=== PATIENT | female | born 1990 ===

== ENCOUNTER 2018-07-08 11:27 | Emergency (ER) | payer MEDICAID ==
--- NOTE | 2018-07-08 12:11 | EDM.PDOC ---
ED HPI GENERAL MEDICAL PROBLEM - General Chief Complaint: Lower Extremity Injury/Pain Stated Complaint: LEG PAIN Time Seen by Provider: 07/08/18 11:31 Source of Information: Reports: Patient History Limitations: Reports: No Limitations - History of Present Illness INITIAL COMMENTS - FREE TEXT/NARRATIVE: Presents reporting tenderness over the left lateral knee. The patient shows me large and extensive varicose veins. Over the left lateral knee the varicosity is tender. She first noticed about 5 days ago. No fever, calf pain. 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: Reports: Psychiatric History: Reports: Depression - Past Surgical History GI Surgical History: Reports: Cholecystectomy Female Surgical History: Reports: Section Musculoskeletal Surgical History: Reports: Carpal Tunnel, Other (See Below) Other Musculoskeletal Surgeries/Procedures:: Right Hip Dislocation Social & Family History - Family History Family Medical History: Noncontributory - Tobacco Use Smoking Status *Q: Current Every Day Smoker Years of Tobacco use: 5 Packs/Tins Daily: 0.1 - Recreational Drug Use Recreational Drug Use: No Review of Systems - Review of Systems Review Of Systems: ROS reveals no pertinent complaints other than HPI. ED EXAM, GENERAL - Physical Exam Exam: See Below Exam Limited By: No Limitations General Appearance: Alert, No Apparent Distress Ears: Normal External Exam Nose: Normal Inspection Throat/Mouth: Normal Inspection Head: Atraumatic, Normocephalic Neck: Normal Inspection Respiratory/Chest: No Respiratory Distress, Lungs Clear, Normal Breath Sounds Cardiovascular: Normal Peripheral Pulses, Regular Rate, Rhythm, No Murmur Back Exam: Normal Inspection Extremities: Other (Left lateral knee varicosity tender to even light touch, warm slightly pink. Negative Homans sign pedal posttibial pulses strong no peripheral edema. No calf warmth, swelling, redness, calf is soft.). No: Pedal Edema Neurological: Alert, Oriented Psychiatric: Normal Affect, Normal Mood Skin Exam: Warm, Dry, Intact, Normal Color, No Rash Lymphatic: No Adenopathy Course - Vital Signs Last Recorded V/S: Last Vital Signs Temp 36.4 C 07/08/18 11:36 Pulse 104 H 07/08/18 11:36 Resp 16 07/08/18 11:36 BP 143/95 H 07/08/18 11:36 Pulse Ox 95 07/08/18 11:36 Departure - Departure Time of Disposition: 12:19 Disposition: Home, Self-Care 01 Condition: Good Clinical Impression: Thrombophlebitis - Discharge Information Referrals: PCP,Unknown [Primary Care Provider] - Forms: ED Department Discharge Additional Instructions: 1. You have been measured for supports stockings. Please order a thigh-high support stocking for your left leg and knee high stockings for both legs. 2. Elevate the left leg is much as possible. 3. Aleve 2 tabs in the morning and 2 at night or ibuprofen 2-3 tabs 3 times a day 4. You must get a referral from your primary care provider for definitive treatment of your extensive varicose veins. 5. Continue with your weight loss efforts as you have been doing. Good job!
[2018-07-08] MEDS ORDERED: Ketorolac 60 MG/2 ML SDV IM ONE (12:19)
== END 2018-07-08 12:53 | disposition home or self-care (01) ==
LOC: MW.ED 11:27
DX: I80.9 Phlebitis and thrombophlebitis of unspecified site (principal); I10 Essential (primary) hypertension; F32.9 Major depressive disorder, single episode, unspecified; F17.210 Nicotine dependence, cigarettes, uncomplicated; Z88.2 Allergy status to sulfonamides; Z79.899 Other long term (current) drug therapy
CPT/HCPCS: 96372; 99283; J1885